=== PATIENT | female | born 1960 | race Caucasian/White ===

== ENCOUNTER 2016-12-26 10:56 | Day surgery (SDC) | payer SELFPAY ==
[~2016-12-26] VITALS: Ht 157.5 cm; Wt 81.1 kg
[~2016-12-26 10:56] MED LIST: CITALOPRAM HBR20 M1 PO; ROSUVASTATIN CA20 MG PO
[2016-12-26 11:48] VITALS: BP 148/78
[2016-12-26 14:27] VITALS: BP 148/68
[2016-12-26 14:50] VITALS: BP 130/68
== END 2016-12-26 14:55 | disposition home or self-care (01) ==
LOC: SDC
DX: H33.001 Unspecified retinal detachment with retinal break, right eye (principal); E78.5 Hyperlipidemia, unspecified; F32.9 Major depressive disorder, single episode, unspecified; Z82.49 Family history of ischemic heart disease and other diseases of the circulatory system; Z81.1 Family history of alcohol abuse and dependence
CPT/HCPCS: J0690; J2405; J3300